=== PATIENT | female | born 1990 | race Caucasian/White ===

== ENCOUNTER 2016-10-31 11:05 | Emergency (ER) | payer OTHER ==
[2016-10-31] MEDS ORDERED: Ketorolac 60 MG/2 ML SDV IM ONE (11:47)
--- NOTE | 2016-10-31 12:01 | EDM.PDOC ---
ED HPI GENERAL MEDICAL PROBLEM - General Chief Complaint: GLAZIER APPRENTICE Problem Stated Complaint: VAGINAL PAIN Time Seen by Provider: 10/31/16 11:50 Source of Information: Reports: Patient History Limitations: Reports: No Limitations - History of Present Illness INITIAL COMMENTS - FREE TEXT/NARRATIVE: History of present illness: [26-year-old female presenting with complaints of intravaginal pain. Patient indicates that while trying to have flatus it was painful and subsequently she explored her vaginal vault and felt some nature of a mass on the internal left wall and it has grown rapidly over the last 2 days and now is quite painful.] Review of systems: As per history of present illness and below otherwise all systems reviewed and negative. Past medical history: As per history of present illness and as reviewed below otherwise noncontributory. Surgical history: As per history of present illness and as reviewed below otherwise noncontributory. Social history: No reported history of drug or alcohol abuse. Family history: As per history of present illness and as reviewed below otherwise noncontributory. Physical exam: HEENT: Atraumatic, normocephalic, pupils reactive, negative for conjunctival pallor or scleral icterus, mucous membranes moist, throat clear, neck supple, nontender, trachea midline. Lungs: Clear to auscultation, breath sounds equal bilaterally, chest nontender. Heart: S1S2, regular, negative for clicks, rubs, or JVD. Abdomen: Soft, nondistended, nontender. Negative for masses or hepatosplenomegaly. Negative for costovertebral tenderness. Pelvis: Stable nontender. Genitourinary: Pelvic exam reveals a retained tampon otherwise negative for concern Rectal: Deferred. Extremities: Atraumatic, negative for cords or calf pain. Neurovascular unremarkable. Neuro: Awake, alert, oriented. Cranial nerves II through XII unremarkable. Cerebellum unremarkable. Motor and sensory unremarkable throughout. Exam nonfocal. Diagnostics: [Pelvic exam] Therapeutics: [] Impression: [Retained tampon] Plan: [Tampon extracted follow-up with PCP/OB] Definitive disposition and diagnosis as appropriate pending reevaluation and review of above. - Related Data Allergies Allergy/AdvReac Type Severity Reaction Status Date / Time trazodone Allergy Severe face Verified 06/13/16 18:08 peeling, hives and withdrawal hydromorphone HCl Allergy Hives Verified 06/13/16 18:07 [From Dilaudid] Iodinated Contrast- Oral and Allergy Hives Verified 06/13/16 18:08 IV Dye [Iodinated Contrast Media - IV Dye] Home Meds: Home Meds . [No Known Home Meds] 06/13/16 [History] Past Medical History Gastrointestinal History: Reports: None Genitourinary History: Reports: None GLAZIER APPRENTICE History: Reports: Endometriosis, Other (See Below) Other OB/BYN History: Pt states 2013-put in to menopause with shots, states ovarian cyst rupture in left ovary and needed cauterization. - Past Surgical History GI Surgical History: Reports: Appendectomy, Cholecystectomy, Other (See Below) Female Surgical History: Reports: Section, Tubal Ligation Social & Family History - Tobacco Use Smoking Status *Q: Never Smoker Second Hand Smoke Exposure: No - Caffeine Use Caffeine Use: Reports: Coffee Caffeine Use Comment: 3 cups/day - Recreational Drug Use Recreational Drug Use: No ED ROS GENERAL - Review of Systems Review Of Systems: See Below (History of present illness) ED EXAM, GENERAL - Physical Exam Exam: See Below (See history of present illness) Course - Orders/Labs/Meds Orders: Active Orders 24 hr Category Date Time Status HCG QUALITATIVE,SERUM [CHEM] Stat Lab 10/31/16 11:47 Ordered UA W/MICROSCOPIC [URIN] Stat Lab 10/31/16 11:47 Uncollected Meds: Medications Discontinued Medications Generic Name Dose Route Start Last Admin Trade Name Freq PRN Reason Stop Dose Admin Ketorolac Tromethamine 60 mg 10/31/16 11:47 Toradol IM 10/31/16 11:48 ONETIME ONE Departure - Departure Time of Disposition: 12:39 Disposition: Home, Self-Care 01 Condition: Good Clinical Impression: Retained tampon - Discharge Information Forms: ED Department Discharge Additional Instructions: The following information is given to patients seen in the emergency department who are being discharged to home. This information is to outline your options for follow-up care. We provide all patients seen in our emergency department with a follow-up referral. The need for follow-up, as well as the timing and circumstances, are variable depending upon the specifics of your emergency department visit. If you don't have a primary care physician on staff, we will provide you with a referral. We always advise you to contact your personal physician following an emergency department visit to inform them of the circumstance of the visit and for follow-up with them and/or the need for any referrals to a consulting specialist. The emergency department will also refer you to a specialist when appropriate. This referral assures that you have the opportunity for follow-up care with a specialist. All of these measure are taken in an effort to provide you with optimal care, which includes your follow-up. Under all circumstances we always encourage you to contact your private physician who remains a resource for coordinating your care. When calling for follow-up care, please make the office aware that this follow-up is from your recent emergency room visit. If for any reason you are refused follow-up, please contact the [facility] Emergency Department at and asked to speak to the emergency department charge nurse. You may take ibuprofen [id number] as needed for discomfort for the next few days Follow-up with PCP in 1-2 days or as needed Return to ED as needed as discussed - My Orders Last 24 Hours: My Active Orders 10/31/16 11:47 HCG QUALITATIVE,SERUM [CHEM] Stat UA W/MICROSCOPIC [URIN] Stat - Assessment/Plan Last 24 Hours: My Active Orders 10/31/16 11:47 HCG QUALITATIVE,SERUM [CHEM] Stat UA W/MICROSCOPIC [URIN] Stat
[2016-10-31 12:57] VITALS: BP 123/76
== END 2016-10-31 12:56 | disposition home or self-care (01) ==
LOC: MW.ED 11:05
DX: T19.2XXA Foreign body in vulva and vagina, initial encounter (principal); Z90.49 Acquired absence of other specified parts of digestive tract; Z98.51 Tubal ligation status; Z88.8 Allergy status to other drugs, medicaments and biological substances; Z91.041 Radiographic dye allergy status; Z88.6 Allergy status to analgesic agent
CPT/HCPCS: 36415; 84703; 96372; 99284; J1885; 99283